=== PATIENT | male | born 1985 | race Caucasian/White ===

== ENCOUNTER 2019-07-27 12:37 | Emergency (ER) | payer MEDICAID ==
[~2019-07-27] VITALS: Ht 180.3 cm; Wt 70.3 kg
[2019-07-27 12:55] VITALS: BP 126/75
== END 2019-07-27 14:15 | disposition home or self-care (01) ==
LOC: ER 12:41
DX: H61.21 Impacted cerumen, right ear (principal); Z60.2 Problems related to living alone